=== PATIENT | female | born 1960 | race Caucasian/White ===

== ENCOUNTER 2019-01-01 06:30 | Day surgery (SDC) | payer OTHER ==
[~2019-01-01] VITALS: Ht 162.6 cm; Wt 105.7 kg
[~2019-01-01 06:30] MED LIST: AMBIEN10 MG PO
--- NOTE | 2019-01-01 09:15 | NUR ---
01/01/19 0915 [place] 0910 PT ARRIVED TO PACU ON RA AND RESP EVEN AND UNLABORED. PT REPORTS PAIN 5/10 AND TOLERBALE. PT DENIES NAUSEA.
--- NOTE | 2019-01-01 10:26 | NUR ---
PT LAYING IN BED, DARK GLASSES ON AND SUPPORTED BY HER JOHNATHON. PT STATED THAT SHE HAS HAD PROCEDURE BEFORE, AND THAT IT IS NO BIG DEAL. BOTH SEEM VERY PLEASANT. EXTENDED A BLESSING, WILL FOLLOW NEEDED
--- NOTE | 2019-01-02 18:24 | OR ---
[facility] [address] [facility] [place], [place] [address] Signed DATE OF OPERATION: 01/01/2019 SURGEON: Bryce Mojica MD PREOPERATIVE DIAGNOSIS: Severe overactive bladder. POSTOPERATIVE DIAGNOSIS: Severe overactive bladder. NAME OF PROCEDURE: Diagnostic cystoscopy with Botox bladder injection, 100 units. ANESTHESIA,: 20 mL of 2% lidocaine jelly per urethra. ESTIMATED BLOOD LOSS: Minimal. COMPLICATIONS: None. SPECIMENS: None. DRAINS: None. INDICATIONS FOR PROCEDURE: Ms. Willett is a very pleasant 58-year-old female who is well known to me. She has a history of severe urinary urgency, frequency, and urge incontinence symptoms. She wears multiple pads daily and has tried multiple anticholinergic medications in the past without any improvement in her symptoms. On her last visit, she was given information on Botox bladder injection and then recently presented to my clinic again requesting to undergo the procedure. After discussion of the risks and benefits of the procedure, the patient has agreed to proceed with injection of botulinum toxin, 100 units. OPERATIVE FINDINGS: 1. On cystoscopy, there was no evidence of any suspicious masses, lesions, or stones. Bilateral ureteral orifices are in their normal anatomic location. Overall, the bladder Portions of this report were created using voice recognition software. There may be inadvertent computer error. Please read with context in mind. If there are any questions, please contact me. Electronically Signed By: RBYCE MOJICA MD 01/02/19 1824 PATIENT NAME: JEB WILLETT OPERATIVE REPORT DATE OF : 58 REPORT #: [id number] PHYSICIAN: BRYCE MOJICA MD PCP: HARPAL CELESTIN MD REPORT IS CONFIDENTIAL AND NOT TO BE RELEASED WITHOUT AUTHORIZATION [facility] [address] [place], [place] [address] Signed appears to be within normal limits with no evidence of any obvious bladder wall trabeculation or erythema. 2. A total of 100 units of botulinum toxin was injected into the bladder via approximately 12 injections of the reconstituted solution. This was performed without difficulty. DESCRIPTION OF PROCEDURE: After informed consent was obtained, the patient was taken back to the operating room. She was transferred from the [facility] to the operating room table and 20 mL of lidocaine jelly was then injected via her urethra and into her bladder. She was placed in the dorsal lithotomy position and her genitalia were prepped and draped in a standard sterile fashion. Using a 30-degree lens on a 21-Divehi introducer, rigid cystoscope was inserted through urethra and into her bladder under direct visualization. Panendoscopic views of the bladder were then obtained. Please see the above findings. The [employer] apparatus was then inserted into the cystoscope. Prior to injection, the patient's bladder was drained completely of urine and other potential debris. The patient's bladder was then filled again and the [employer] needle was primed and set at 3 mm in length. Injections were then placed at 0.5 mL aliquots, total of approximately 12 injections throughout the posterior and lateral bains of bladder, avoiding the dome and trigone areas. The patient tolerated the procedure well without any complication. The procedure was terminated once all of the solution was injected. The patient's bladder was then drained and the cystoscope was removed. The procedure was then terminated. The patient will be now taken to the postanesthesia care unit in a stable condition. DISPOSITION: I discussed the details of today's procedure with the patient's and answered all of his questions. She did quite well today, undergoing injection of Botox without any formal anesthetic. She will likely be sent home soon once she is fully recovered in the PACU. She will be sent home today with Cipro 500 mg p.o. b.i.d. for a total of 5 days. She was warned of the possibility of a pinkish tincture or urine along with potential blood clots for the next couple of days. She will be scheduled to return to clinic in 2 months on February 28 at around 10:30 a.m. for her first postoperative evaluation. MD NICOLE Bradley/YNAETHL /[id number] Portions of this report were created using voice recognition software. There may be inadvertent computer error. Please read with context in mind. If there are any questions, please contact me. Electronically Signed By: BRYCE MOJICA MD 01/02/19 1824 PATIENT NAME: JEB WILLETT OPERATIVE REPORT DATE OF : 58 REPORT #: [id number] PHYSICIAN: BRYCE MOJICA MD PCP: HARPAL CELESTIN MD REPORT IS CONFIDENTIAL AND NOT TO BE RELEASED WITHOUT AUTHORIZATION [address] [address] Signed Copies: ~ Portions of this report were created using voice recognition software. There may be inadvertent computer error. Please read with context in mind. If there are any questions, please contact me. Electronically Signed By: BRYCE MOJICA MD 01/02/19 1824 PATIENT NAME: JEB WILLETT OPERATIVE REPORT DATE OF : 58 REPORT #: [id number] PHYSICIAN: BRYCE MOJICA MD PCP: HARPAL CELESTIN MD REPORT IS CONFIDENTIAL AND NOT TO BE RELEASED WITHOUT AUTHORIZATION
== END 2019-01-01 09:46 | disposition home or self-care (01) ==
LOC: DS 06:30 → OPS 06:30 → DS 06:45 → OPS 06:45
PROVIDERS: Urology
PROC: 3E0K8GC Introduction of Other Therapeutic Substance into Genitourinary Tract, Via Natural or Artificial Opening Endoscopic (ICD-10-PCS; principal; 2019-01-01 08:15)
DX: N32.81 Overactive bladder (principal); N30.10 Interstitial cystitis (chronic) without hematuria; N39.46 Mixed incontinence; I10 Essential (primary) hypertension; F32.9 Major depressive disorder, single episode, unspecified; F41.9 Anxiety disorder, unspecified; E66.9 Obesity, unspecified; G47.33 Obstructive sleep apnea (adult) (pediatric); Z88.8 Allergy status to other drugs, medicaments and biological substances; Z79.899 Other long term (current) drug therapy; Z68.39 Body mass index [BMI] 39.0-39.9, adult; Z85.79 Personal history of other malignant neoplasms of lymphoid, hematopoietic and related tissues
CPT/HCPCS: 00910; J0585; J0696; J1100; J1885; J2250; J2405; J2704; J2765; J3010; J7120

== ENCOUNTER 2019-05-11 11:10 | Day surgery (SDC) | payer OTHER ==
[~2019-05-11] VITALS: Ht 162.6 cm; Wt 106.1 kg
[~2019-05-11 11:10] MED LIST changes: +ZESTRIL10 MG PO
--- NOTE | 2019-05-11 12:39 | NUR ---
05/11/19 1239 Stephie Hansen 1230 PT TO PACU AWAKE AND ALERT DENIES PAIN AND NAUSEA. PT ASKING FOR COFFEE AND WATER.
== END 2019-05-11 13:15 | disposition home or self-care (01) ==
LOC: OPS 11:10 → DS 11:10 → OPS 12:00 → DS 12:00 → OPS 13:15
PROVIDERS: Specialist
PROC: 079T3ZX Drainage of Bone Marrow, Percutaneous Approach, Diagnostic (ICD-10-PCS; 2019-05-11)
PROC: 07DR3ZX Extraction of Iliac Bone Marrow, Percutaneous Approach, Diagnostic (ICD-10-PCS; principal; 2019-05-11 12:00)
DX: C90.00 Multiple myeloma not having achieved remission (principal); D64.9 Anemia, unspecified; I10 Essential (primary) hypertension; G47.33 Obstructive sleep apnea (adult) (pediatric); Z88.8 Allergy status to other drugs, medicaments and biological substances; Z79.899 Other long term (current) drug therapy
CPT/HCPCS: 85025; 99152; 99153; J2250; J3010; J7120

== ENCOUNTER 2019-11-21 10:38 | Day surgery (SDC) | payer OTHER ==
[~2019-11-21] VITALS: Ht 162.6 cm; Wt 110.2 kg
[~2019-11-21 10:38] MED LIST changes: +ADVIL200 MG PO; +CLONAZEPAM1 MG PO; +NORCO 5-325 TA1 EACH PO; +ONE-DAILY MULT1 EAC1 PO; +REVLIMID15 MG PO
--- NOTE | 2019-11-21 12:46 | NUR ---
11/21/19 1246 Peyton Rucker 1242-PATIENT ARRIVED TO PACU AWAKE DENIES PAIN OR NAUSEA. LAYING ON BACK HOB ELEVATED. IVF INFUSING. BP'S 150'S REPORTS TAKES BP MEDICATION AT NIGHT AND TOOK LAST EVENING.
--- NOTE | 2019-11-23 16:22 | PATH ---
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 Multiple myeloma diagnosis 05/11/2019. Status posterior RVD chemotherapy. Disease reassessment after treatment. C90.00 (multiple myeloma not having achieved remission). DIAGNOSIS SUMMARY: A. Peripheral blood - No diagnostic abnormality. B. Bone marrow, right side, aspirate smear, aspirate cell block, and trephine biopsy: - Negative for plasma cell myeloma. - Normocellular marrow with active trilineage hematopoiesis. - See Diagnostic Comment. DIAGNOSTIC COMMENT: No morphologic or immunophenotypic evidence of residual plasma cell myeloma is identified in this study. Sensitive multiparameter flow cytometry is used in the analysis. Because the patient's myeloma is not associated with detectable mutation as seen in the previous bone marrow study ([id number]) with normal myeloma panel FISH result, no additional study is performed at this time. TTP:smn:C2NR PERIPHERAL BLOOD: HEMOGRAM (11/21/2019): WBC 9.7 K/uL, RBC 4.48 M/uL, HGB 13.2 g/dL, HCT 40.1%, MCV 89.7 fL, RDW 15.8%, PLT 259 K/uL. DIFFERENTIAL: 68% neutrophils, 17% lymphocytes, 10.1% monocytes, 3.6% eosinophils, and 1.3% basophils. The red cells are normal in number and are normochromic and normocytic. Anisocytosis and poikilocytosis are not increased. Red blood rouleaux are absent. Leukocytes are normal in number and show a normal differential. Dysplastic changes are not seen. Circulating plasma cells are not detected. Platelets are normal in number and show normal morphology. BONE MARROW: PATIENT NAME: JEB MORENO PATHOLOGY DATE OF : 58 REPORT #: [id number] PHYSICIAN: VASQUEZ PATHOLOGY PCP: HARPAL CELESTIN MD REPORT IS CONFIDENTIAL AND NOT TO BE RELEASED WITHOUT AUTHORIZATION [facility] [address] [place], [place] [address] Signed BONE MARROW ASPIRATE SMEARS: The bone marrow aspirate smears contain adequate cellular marrow particles with normal proportions of myeloid and erythroid forms, which mature in a complete and maintenance person fashion without overtly dysplastic features. Blasts are not increased. No atypical lymphoid population is seen. Plasma cells are not increased and they show normal morphology. Megakaryocytes are normal in number and appearance. A 200-cell differential count yields: 8% myelocytes, 25% metamyelocytes, 28% neutrophils, 6% lymphocytes, and 33% erythroid precursors. BONE MARROW CLOT (ASPIRATE CELL BLOCK) AND TREPHINE BIOPSY): A 1.7 cm decalcified trephine biopsy is of excellent quality and shows a normocellular marrow for age (50-60% cellular). Granulopoietic and erythroid maturations are present with an M:E ratio of 2:1. No interstitial increase in plasma cells or aggregates of plasma cells are detected. Megakaryocytes are normal in number and appearance. No aggregates of immature cells, lymphoid nodules, granulomas, or other focal lesions are identified. Trabecular bone is normal. The clot section contains minute cellular marrow particles with similar findings. SPECIAL STAINS: - Iron (aspirate smear and clot section): Adequate stainable iron store. Negative for ringed sideroblasts. Appropriate positive control is reviewed. IMMUNOHISTOCHEMISTRY, BLOCK A1: - CD138: Rare scattered plasma cells are positive (1%). IN SITU HYBRIDIZATION, BLOCK A1: - [place]: Rare scattered plasma cells are positive. - Lambda: Rare scattered plasma cells are positive. No evidence of a monotypic plasma cell population is detected by in situ hybridization. TTP:smn FLOW CYTOMETRY: Bone marrow aspirate, flow cytometry: - No atypical plasma cell population detected. - No atypical B or T-cell population detected. - See Comment. COMMENT: About 0.2% of total events are polytypic plasma cells. A monotypic plasma cell population is not detected in this study. No atypical B or T-cell population is detected. Correlation with clinical PATIENT NAME: JEB MORENO PATHOLOGY DATE OF : 58 REPORT #: [id number] PHYSICIAN: VASQUEZ MASTERS PCP: HARPAL CELESTIN MD REPORT IS CONFIDENTIAL AND NOT TO BE RELEASED WITHOUT AUTHORIZATION [facility] [address] [place], [place] [address] Signed and histologic findings is needed. Flow cytometry analysis often underestimates the amount of plasma cells. FLOW CYTOMETRY ANALYSIS: FLOW DIFFERENTIAL (% Total CD45 vs. SSC gating): Myeloid 78%; Lymphoid 7%; Monocyte 3%; Dim CD45/Blast: 1.4%. Cell Count: 3.4 x 10*3/uL. POPULATION ANALYSIS: BLASTS: Analysis of the dim CD45 gate demonstrates 1.4% myeloblasts and 4.6% hematogones. LYMPHOID CELLS: The lymphocyte gate comprises 7% of total events and includes 67% T-cells with a CD4:CD8 ratio of 2.3:1 and normal best T-cell antigen expression. 8% of lymphocytes are polyclonal B-cells with a kappa:lambda ratio of 1.1:1. 20% of lymphocytes are NK-cells. MYELOID CELLS: The myeloid population comprises 78% of the total events. No aberrant immunophenotypic expression is detected. MONOCYTES: The monocyte population comprises 3% of the total events. Monocytes are not increased. No aberrant immunophenotypic expression is detected. PLASMA CELLS: There is a history of multiple myeloma. For this reason, select additional antibodies are run to further characterize the plasma cells. 0.2% polytypic plasma cells are detected (n=96) expressing CD45 NEG-DIM, CD38 BR, CD138 DIM, CD19 DIM-MOD while negative for CD20 and CD56 with a ckappa:clambda ratio of 2.3:1. ANTIBODIES USED: KAPPA, LAMBDA, CD20, CD10, CD19, CD23, CD38, FMC7, CD16, CD56, CD8, CD5, CD2, CD4, CD7, CD3, CD14, CD33, CD13, HLADR, CD34, CD117, CD15, CD45, CD138, cKAPPA, cLAMBDA : TOTAL ANTIBODIES USED: 27. JLR FINAL DIAGNOSIS PERFORMED BY: Tran Campoverde MD, Pathologist Nov 23 2019 12:56PM GROSS DESCRIPTION: A. The specimen, received in formalin, labeled "Tamie, bone core," consists of a 2.1 cm, danielson bone core. Submitted in (A1) following decalcification in Immunocal for 1.5 hours. B. The specimen, received in formalin, labeled "Tamie, clot," consists of a 1.5 x 1.5 x 0.2 cm aggregate of blood clot. Entirely submitted in (B1). tn:BMH:f ADDITIONAL NOTES: Immunohistochemical and/or in situ hybridization studies were performed on this case with the appropriate positive controls that react as expected. This test was developed and its performance PATIENT NAME: JEB MORENO PATHOLOGY DATE OF : 58 REPORT #: [id number] PHYSICIAN: VASQUEZ PATHOLOGY PCP: HARPAL CELESTIN MD REPORT IS CONFIDENTIAL AND NOT TO BE RELEASED WITHOUT AUTHORIZATION [facility] [address] [place] [id number] Signed characteristics determined by [facility]. It has not been cleared or approved by the U.S. Food and Drug Administration. The FDA has determined that such clearance or approval is not necessary. This test is used for clinical purposes. It should not be regarded as investigational or for research. [facility] is certified under the Clinical Laboratory Improvement Amendments of 1988 (CLIA) as qualified to perform high complexity clinical laboratory testing. In this case, certain antibodies were performed by both immunohistochemistry and flow cytometry analysis because flow cytometry analysis did not fully explain all the light microscopic findings. Immunohistochemistry aided in the analysis. Both methods are deemed medically necessary in this case. This test was developed and its performance characteristics determined by [facility]. It has not been cleared or approved by the US Food and Drug Administration. The FDA does not require this test to go through premarket FDA review. This test is used for clinical purposes. It should not be regarded as investigational or for research. This laboratory is certified under the Clinical Laboratory Improvement Amendments (CLIA) as qualified to perform high complexity clinical laboratory testing. PERFORMING LABORATORY: The professional interpretation was performed by [facility], [address] [place] [address] (School Principal: Scott Kaiser D.O.; CLIA#: [id number]). Professional interpretation was performed by [facility] [address] [place] [address] (School Principal: Scott Kaiser D.O.; CLIA#: [id number]). IMAGES: A: [id number] A: [id number] Diagnostician: Tran Campoverde MD Pathologist Electronically Signed 11/23/2019 Copies: PATIENT NAME: JEB MORENO PATHOLOGY DATE OF : 58 REPORT #: [id number] PHYSICIAN: VASQUEZ PATHOLOGY PCP: HARPAL CELESTIN MD REPORT IS CONFIDENTIAL AND NOT TO BE RELEASED WITHOUT AUTHORIZATION [address] [place], [place] [address] Signed ~ PATIENT NAME: JEB MORENO PATHOLOGY DATE OF : 58 REPORT #: [id number] PHYSICIAN: VASQUEZ MASTERS PCP: HARPAL CELESTIN MD REPORT IS CONFIDENTIAL AND NOT TO BE RELEASED WITHOUT AUTHORIZATION
== END 2019-11-21 13:10 | disposition home or self-care (01) ==
LOC: OPS 10:38 → DS 10:42 → OPS 12:00
PROVIDERS: Specialist
PROC: 079T3ZX Drainage of Bone Marrow, Percutaneous Approach, Diagnostic (ICD-10-PCS; 2019-11-21)
PROC: 07DR3ZX Extraction of Iliac Bone Marrow, Percutaneous Approach, Diagnostic (ICD-10-PCS; principal; 2019-11-21 12:00)
DX: C90.00 Multiple myeloma not having achieved remission (principal); I10 Essential (primary) hypertension; G47.33 Obstructive sleep apnea (adult) (pediatric); Z98.890 Other specified postprocedural states; Z79.899 Other long term (current) drug therapy; Z88.8 Allergy status to other drugs, medicaments and biological substances
CPT/HCPCS: 36415; 80500; 85025; 99152; 99153; J2250; J3010; J7121